=== PATIENT | female | born 1980 | race Caucasian/White ===

== ENCOUNTER 2017-07-29 23:26 | Emergency (ER) | payer SELFPAY ==
[~2017-07-29] VITALS: Ht 167.6 cm; Wt 72.6 kg
[~2017-07-29 23:26] MED LIST: ONDA4TAB10 PO
[2017-07-30] MEDS ORDERED: LIDOCAINE 2% 20 ML VIAL. IJ ONE (00:30)
[2017-07-30] MEDS ORDERED: DIPHTH,PERTUSS(ACELL),TET TOX 0.5 ML DISP.SYRIN. VAX IM ONE (00:30)
[2017-07-30] MEDS ORDERED: HYDR-971 PO (01:36)
--- NOTE | 2017-07-30 01:37 | PHYS DOC ---
Past History Past Medical History: Other Past Surgical History: No Surgical History Alcohol Use: Rarely Drug Use: None Adult General Chief Complaint Chief Complaint: LACERATION/AVULSION [facility] HPI Patient is a 36 year old female who presents with complaint of laceration to the left forearm. The patient states that the laceration took place after she had reached into the supervisor powdered metal to grab a dish. The patient did not notice a knife that was sticking with the blade side up in the supervisor powdered metal. Patient states she accidentally cut herself while reaching in to the supervisor powdered metal on this knife. The patient states that the cut went deep and she is concerned that she damaged a tendon. Bleeding was controlled prior to arrival. The patient's tetanus immunization is not up-to-date. Patient denies any other injuries. The patient states that she is able to extend and flex all 5 digits on her left hand normally. Review of Systems Review of Systems Constitutional: Denies fever or chills [] Eyes: Denies change in visual acuity, redness, or eye pain [] HENT: Denies nasal congestion or sore throat [] Respiratory: Denies cough or shortness of breath [] Cardiovascular: No additional information not addressed in HPI [] GI: Denies abdominal pain, nausea, vomiting, bloody stools or diarrhea [] : Denies dysuria or hematuria [] Musculoskeletal: Left forearm injury[] Integument: Denies rash or skin lesions [] Neurologic: Denies headache, focal weakness or sensory changes [] All other systems were reviewed and found to be within normal limits, except as documented in this note. Current Medications Current Medications Current Medications Medications (Trade) Dose Ordered Sig/Dayday Start Time Stop Time Status Last Admin Dose Admin Diphtheria/ Tetanus/Acell Pertussis (Boostrix) 0.5 ml ONCE ONCE 07/30/17 00:30 07/30/17 00:31 DC 07/30/17 00:56 0.5 ML Lidocaine HCl 20 ml 1X ONCE 07/30/17 00:30 07/30/17 00:31 DC Allergies Allergies Allergies Coded Allergies Type Severity Reaction Last Updated Verified aspirin Allergy Mild Nausea and Vomiting 04/05/16 Yes Physical Exam Physical Exam Constitutional: Alert, afebrile, appears in moderate discomfort. [] HENT: Normocephalic, atraumatic, bilateral external ears normal, oropharynx moist, no oral exudates, nose normal. [] Eyes: PERRLA, EOMI, conjunctiva normal, no discharge. [] Neck: Normal range of motion, no tenderness, supple, no stridor. [] Cardiovascular:Heart rate regular rhythm, no murmur [] Lungs & Thorax: Bilateral breath sounds clear to auscultation [] Abdomen: Bowel sounds normal, soft, no tenderness, no masses, no pulsatile masses. [] Skin: Warm, dry, no erythema, no rash. [] Back: No tenderness, no CVA tenderness. [] Extremities: 4 cm transverse laceration across the volar aspect of distal two third of forearm, visualized flexor tendon injury and wound bed, neurovascularly intact distal to site of injury, normal flexion and extension at all 5 digits of left hand. [] Neurologic: Alert and oriented X 3, normal motor function, normal sensory function, no focal deficits noted. [] Current Patient Data Vital Signs Vital Signs Date Time Temp Pulse Resp B/P (MAP) Pulse Ox O2 Delivery O2 Flow Rate FiO2 07/30/17 02:10 98.3 100 07/30/17 02:00 18 Room Air Lab Results Not performed EKG EKG Not performed[] Radiology/Procedures Radiology/Procedures Indication: Left forearm laceration Procedure: The patient was placed in the appropriate position and anesthesia around the laceration was achieved with local infiltration of lidocaine 2%. The area was then irrigated with copious amounts of sterile water. The laceration was closed using 4-0 Ethilon simple unerupted sutures. The wound was closed over the lacerated tendon. The wound area was then dressed with Telfa and gauze and patient was placed in a volar splint. My evaluation post splint application showed normal capillary refill in all 5 digits of the left hand and normal sensation in all 5 digits. Total repaired wound length: 4 cm. Other Items: Total suture count: 7 The patient tolerated the procedure without difficulty. Complications: None.[] Course & Med Decision Making Course & Med Decision Making Pertinent Labs and Imaging studies reviewed. (See chart for details) The laceration was repaired as outlined in the procedure note. Due to the presence of tendon injury, the patient was placed in a splint and referred to Dr. Ortiz of hand surgery through the office of Dr. Jimenez for follow-up in 7 days. I also contacted the patient's primary physician, Dr. Grimaldo, who is aware of the injury and stated that if the patient had any trouble establishing follow-up with Dr. Ortiz he would help refer patient to hand surgery. Patient was also prescribed [place] to help with pain. Advised return to emergency department for any worsening symptoms. Patient was understanding and in agreement with treatment plan. Dragon Disclaimer Dragon Disclaimer This electronic medical record was generated, in whole or in part, using a voice recognition dictation system. Departure Departure: Impression: Primary Impression: Forearm laceration involving tendon Disposition: HOME, SELF-CARE Condition: IMPROVED Referrals: LETICIA OSORIO MD (PCP) BALJIT JIMENEZ MD Patient Instructions: Laceration Care, Adult, Tendon Injury Additional Instructions: Your examination today showed a laceration of a flexor tendon in your left forearm. You'll need to follow-up with Dr. Ortiz, hand surgeon, who holds clinic at the office of Dr. Jimenez of orthopedic surgery. Please follow-up in the next 7 days for reevaluation. Return to the emergency department for any worsening symptoms. Scripts Hydrocodone Bit/Acetaminophen (NORCO 5-325 TABLET) 1 Each Tablet 1-2 TAB PO Q4-6HRS, #30 TAB Prov: VAN GRACIA MD 07/30/17 Problem Qualifiers Primary Impression: Forearm laceration involving tendon Encounter type: initial encounter Laterality: left Qualified Codes: S51.812A - Laceration without foreign body of left forearm, initial encounter; S56.922A - Laceration of unspecified muscles, fascia and tendons at forearm level, left arm, initial encounter VAN GRACIA MD Jul 30, 2017 01:37
[2017-07-30] MEDS ORDERED: HYDROcodone/APAP 7.5/325MG 1 TAB TABLET PO ONE (02:00)
[2017-07-30 02:10] VITALS: BP 143/88
== END 2017-07-30 02:10 | disposition home or self-care (01) ==
LOC: ER 23:26
DX: S51.812A Laceration without foreign body of left forearm, initial encounter (principal); Z88.6 Allergy status to analgesic agent; W26.0XXA Contact with knife, initial encounter; Y93.89 Activity, other specified; Y99.8 Other external cause status; Y92.89 Other specified places as the place of occurrence of the external cause
CPT/HCPCS: 12002; 90471; 90715; 99283-25

== ENCOUNTER 2017-08-07 19:22 | Emergency (ER) | payer SELFPAY ==
[~2017-08-07] VITALS: Ht 167.6 cm; Wt 72.6 kg
[~2017-08-07 19:22] MED LIST changes: +HYDR-971 PO
[2017-08-07 19:47] VITALS: BP 156/86
--- NOTE | 2017-08-08 03:40 | ED.ADGEN ---
Past History Past Medical History: Other Past Surgical History: No Surgical History, Tonsillectomy, Other Alcohol Use: Rarely Drug Use: None Adult General Chief Complaint Chief Complaint Wound evaluation HPI HPI Patient is a 36 year old female right-handed female who presented to the emergency department for reevaluation of the his left wrist/forearm wound. Patient was treated emergency apartment approximately 2 weeks ago for the same. Patient had laceration repaired and was instructed to follow-up with hand surgeon or return to the ED in 10 days for removal of sutures. The patient did not all up and proceeded to remove her sutures at home prior to the pointed removal today. Wound is since and delayed healing. No rash, infection is noted. No other symptoms or complaints[] Review of Systems Review of Systems ROS as per HPI All other systems were reviewed and found to be within normal limits, except as documented in this note. Allergies Allergies Allergies Coded Allergies Type Severity Reaction Last Updated Verified aspirin Allergy Mild Nausea and Vomiting 04/05/16 Yes Physical Exam Physical Exam Constitutional: Well developed, well nourished, no acute distress, non-toxic appearance. [] HENT: Normocephalic, atraumatic, bilateral external ears normal, oropharynx moist, no oral exudates, nose normal. [] Extremities: Partial thickness Wound dehiscence, left flexor forearm wrist. Cellulitis. [] Neurologic: Alert and oriented X 3, normal motor function, normal sensory function, no focal deficits noted. [] Psychologic: Affect normal, judgement normal, mood normal. [] Current Patient Data Vital Signs Vital Signs Date Time Temp Pulse Resp B/P (MAP) Pulse Ox O2 Delivery O2 Flow Rate FiO2 08/07/17 19:47 98.2 89 18 97 Room Air EKG EKG [] Radiology/Procedures Radiology/Procedures [] Course & Med Decision Making Course & Med Decision Making Pertinent Labs and Imaging studies reviewed. (See chart for details) [Patient reassured. Recommendations are supportive care with PCP follow-up as needed.] Final Impression Final Impression [Wound reevaluation] Dragjonathan Disclaimer Dragon Disclaimer This electronic medical record was generated, in whole or in part, using a voice recognition dictation system. AWILDA SWAIN DO Aug 08, 2017 03:40
== END 2017-08-07 20:10 | disposition home or self-care (01) ==
LOC: ER 19:22
DX: S50.912D Unspecified superficial injury of left forearm, subsequent encounter (principal); L03.114 Cellulitis of left upper limb; Z88.6 Allergy status to analgesic agent; X58.XXXD Exposure to other specified factors, subsequent encounter
CPT/HCPCS: 99281

== ENCOUNTER 2018-03-01 12:18 | Emergency (ER) | payer SELFPAY ==
[~2018-03-01] VITALS: Ht 167.6 cm; Wt 63.5 kg
[2018-03-01 12:18] VITALS: BP 141/75
[~2018-03-01 12:18] MED LIST changes: +HYDR-3165 PO; -HYDR-971 PO
[2018-03-01] MEDS ORDERED: OXYC1TAB15 PO (13:15)
[2018-03-01] MEDS ORDERED: oxyCODONE/APAP 5/325 1 TAB TABLET PO ONE (13:15)
--- NOTE | 2018-03-01 13:15 | PHYS DOC ---
Past History Past Medical History: Depression, Other Past Surgical History: No Surgical History, Tonsillectomy, Other Alcohol Use: Rarely Drug Use: None Adult General Chief Complaint Chief Complaint: UPPER EXTREMITY PAIN HPI HPI Patient is a 37 yo female who presents with complaint in L forearm following injury 1 week prior. Pt says she had her arm resting on a door frame when someone closed the door and her arm was injured. She has used regular doses of 800mg ibuprofen to help with pain in addition to a wrist splint and icing the area TID. Patient reports she is still having significant pain (8/10) and limited ROM and is worried about her arm. She has never had any surgeries on the wrist and denies pain in the antecubital region or numbness/tingling in her fingers. Review of Systems Review of Systems Respiratory: Denies cough or shortness of breath [] Cardiovascular: Denies chest pain or palpitations Musculoskeletal: admits pain in distal LUE, worse with motion. Integument: Denies rash or skin lesions, admits to ecchymosis Neurologic: Denies headache, focal weakness or sensory changes. Denies numbness , tingling L hand Complete systems were reviewed and found to be within normal limits, except as documented in this note. Current Medications Current Medications Current Medications Medications (Trade) Dose Ordered Sig/Dayday Start Time Stop Time Status Last Admin Dose Admin Oxycodone/ Acetaminophen (Percocet 5/325) 1 tab 1X ONCE 03/01/18 13:15 03/01/18 13:16 03/01/18 13:06 1 TAB Allergies Allergies Allergies Coded Allergies Type Severity Reaction Last Updated Verified aspirin Allergy Mild Nausea and Vomiting 04/05/16 Yes Physical Exam Physical Exam Constitutional: Well developed, well nourished, no acute distress, non-toxic appearance. [] HENT: Normocephalic, atraumatic, Eyes:EOMI, conjunctiva normal, no discharge. [] Neck: Normal range of motion, no tenderness, supple, no stridor. [] Cardiovascular: Heart rate regular rhythm, no murmur [] Lungs & Thorax: Bilateral breath sounds clear to auscultation [] Skin: Warm, dry, no erythema, no rash, moderate ecchymosis in various stages of healing dorsal aspect distal LUE. Extremities: No tenderness, no cyanosis, no clubbing, L wrist AROM flexion and supination limited as compared to R. BL hands warm, well perfused, radial pulses present BL. Neurologic: Alert and oriented X 3, normal motor function, normal sensory function, no focal deficits noted. [] Current Patient Data Vital Signs Vital Signs Date Time Temp Pulse Resp B/P (MAP) Pulse Ox O2 Delivery O2 Flow Rate FiO2 03/01/18 12:18 97.7 92 20 99 Room Air Lab Results Laboratory Tests Test 03/01/18 12:40 POC Urine HCG, Qualitative hcg negative (Negative) EKG EKG [] Radiology/Procedures Radiology/Procedures PROCEDURE: WRIST 3V LEFT LEFT WRIST, 3 VIEWS Indication: Pain s/p blunt trauma, "shut in door" 1 week ago, bruising Findings: There is no acute fracture or dislocation. No bony erosion is identified. The bony articulations are normal. The mineralization is normal. Question thinly calcified 8 mm oval density in the palmar soft tissues. IMPRESSION: No acute fracture or dislocation. Electronically signed by: Donald Moran MD (03/01/2018 1:36 PM) [facility] Course & Med Decision Making Course & Med Decision Making Pertinent Imaging studies reviewed. (See chart for details) Patient is 37 yo female who presents with complaint of L forearm pain following injury 1 week prior. Patient treated symptoms with a splint, scheduled ibuprofen , and ice tid with minimal symptomatic relief. She presented with her daughter and mother (mother drove to hospital and is driving pt home). On physical exam distal L forearm shows significant ecchymosis with limited ROM (likely secondary to pain), however the extremity is warm, well perfused, and radial pulse present. Radiographic imaging of L arm shows no acute fracture or dislocation. As patient has safe transportation home her pain was addressed with oxycodone/acetaminophen. Extremity secured in RUTHANN bandage. Patient instructed to continue RICE and given prescription for oxycodone/acetaminophen. Patient also instructed to follow up with ortho or to return to ED if symptoms persist. Patient stable for discharge with outpatient follow-up with PCP. Discussed findings and plan with patient and family, who acknowledge understanding and agreement. Dragon Disclaimer Dragon Disclaimer This electronic medical record was generated, in whole or in part, using a voice recognition dictation system. Splinting Splinting : Location: Left forearm Pre-Made Type: RUTHANN bandage Pre-Proc Neuro Vasc Exam: normal Post-Proc Neuro Vasc Exam: normal, unchanged from pre-exam Departure Departure: Impression: Primary Impression: Wrist contusion Disposition: 01 HOME, SELF-CARE Condition: STABLE Referrals: RIO FOSTER MD (PCP) BALJIT MOONEY MD Patient Instructions: Contusion, [id number], Wrist Sprain with Rehab- [facility] Scripts Oxycodone Hcl/Acetaminophen (PERCOCET 5-325 MG TABLET ) 1 Each Tablet 1 TAB PO PRN Q6HRS PRN for PAIN, #6 TAB Prov: BENI PERRY DO 03/01/18 Problem Qualifiers Primary Impression: Wrist contusion Encounter type: initial encounter Laterality: left Qualified Codes: S60.212A - Contusion of left wrist, initial encounter BENI PERRY DO Mar 01, 2018 13:15
--- NOTE | 2018-03-01 13:40 | RAD ---
LEFT WRIST, 3 VIEWS Indication: Pain s/p blunt trauma, "shut in door" 1 week ago, bruising Findings: There is no acute fracture or dislocation. No bony erosion is identified. The bony articulations are normal. The mineralization is normal. Question thinly calcified 8 mm oval density in the palmar soft tissues. IMPRESSION: No acute fracture or dislocation. Electronically signed by: Donald Moran MD (03/01/2018 1:36 PM) [facility]
== END 2018-03-01 13:20 | disposition home or self-care (01) ==
LOC: ER 12:18
DX: S60.212A Contusion of left wrist, initial encounter (principal); Z88.6 Allergy status to analgesic agent; W22.8XXA Striking against or struck by other objects, initial encounter; Y93.89 Activity, other specified; Y92.89 Other specified places as the place of occurrence of the external cause; Y99.8 Other external cause status
CPT/HCPCS: 73110; 81025; 99283